=== PATIENT | female | born 1955 | race Caucasian/White ===

== ENCOUNTER 2021-07-17 10:28 | Day surgery (SDC) | payer OTHER ==
[2021-07-14 12:24] VITALS: BMI 24.0
[2021-07-17] MEDS ORDERED: PHENYLEPHRINE 2.5% OPHTH SOLN 15 ML BOTTLE ONE (10:39)
[2021-07-17] MEDS ORDERED: CYCLOPENTOLATE HCL 1% OPHTH SOLN 2 ML BOTTLE ONE (10:39)
[2021-07-17] MEDS ORDERED: TROPICAMIDE 1% OPHTH SOLN 15 ML BOTTLE ONE (10:39)
[2021-07-17] MEDS ORDERED: OFLOXACIN 0.3% OPHTHALMIC SOLUTION 5 ML BOTTLE ONE (10:39)
[2021-07-17] MEDS ORDERED: KETOROLAC TROMETHAMINE 0.5% EYE DROP 1 DROP DROPS ONE (10:39)
[2021-07-17] MEDS: KETOROLAC TROMETHAMINE 0.5% EYE DROP 1 DROP DROPS OD SCH ×3 (11:05→11:15)
[2021-07-17] MEDS: OFLOXACIN 0.3% OPHTHALMIC SOLUTION 5 ML BOTTLE OD SCH ×3 (11:05→11:15)
[2021-07-17] MEDS: PHENYLEPHRINE 2.5% OPHTH SOLN 15 ML BOTTLE OD SCH ×3 (11:05→11:15)
[2021-07-17] MEDS: CYCLOPENTOLATE HCL 1% OPHTH SOLN 2 ML BOTTLE OD SCH ×3 (11:05→11:15)
[2021-07-17] MEDS: TROPICAMIDE 1% OPHTH SOLN 15 ML BOTTLE OD SCH ×3 (11:05→11:15)
[2021-07-17] MEDS ORDERED: EPI-SHUGARCAINE (EPINEPHRINE 0.025% & LIDOCAINE-PF 0.75%) 4ML ONE (11:54)
[2021-07-17] MEDS ORDERED: TETRACAINE 0.5% OPHTH SOLN 2 ML BOTTLE ONE (11:54)
[2021-07-17] MEDS ORDERED: NEO/POLYMYX B SULF/DEXAMETH OPHTHALMIC 5ML BOTTLE ONE (11:54)
[2021-07-17] MEDS ORDERED: POVIDONE-IODINE 5% OPHTHALMIC PREP 30 ML SOLUTION ONE (11:54)
[2021-07-17] MEDS ORDERED: BETAXOLOL HCL 0.25% OPHTHALMIC 10 ML DROPSBTL ONE (11:54)
[2021-07-17] MEDS ORDERED: BACITRACIN/POLYMYXIN OPH OINT 3.5 GM TUBE ONE (11:54)
[2021-07-17] MEDS ORDERED: MIDAZOLAM HCL 2 MG/2 ML SINGLE DOSE VIAL ONE (12:07)
[2021-07-17] MEDS ORDERED: ACETAMINOPHEN 325 MG TABLET (FP) PO PRN (12:35)
[2021-07-17] MEDS ORDERED: ACETAMINOPHEN 325 MG TABLET (FP) PO ONE (12:50)
[2021-07-17] MEDS ORDERED: ACETAMINOPHEN 325 MG TABLET (FP) ONE (12:52)
[2021-07-17 13:08] VITALS: TEMP 97.6
[2021-07-17 13:27] VITALS: BP 116/54; PULSE 78
== END 2021-07-17 13:45 | disposition home or self-care (01) ==
LOC: FASU 10:28
PROVIDERS: ATTEND Ophthalmology
PROC: 08RJ3JZ Replacement of Right Lens with Synthetic Substitute, Percutaneous Approach (ICD-10-PCS; principal; 2021-07-17 12:18)
DX: H25.11 Age-related nuclear cataract, right eye (principal)

== ENCOUNTER → 2021-07-31 | Day surgery (SDC) | payer OTHER ==
[2021-07-28 16:07] VITALS: BMI 24.0
[~2021-07-31] MED LIST: ACETAMINOPHEN 325 MG TABLET (FP) ONE; ACETAMINOPHEN 325 MG TABLET (FP) PO PRN; ACETYLCHOLINE 1:100 INTRA-OCUL 20 MG/2 ML KIT ONE; BACITRACIN/POLYMYXIN OPH OINT 3.5 GM TUBE ONE; BETAXOLOL HCL 0.25% OPHTHALMIC 10 ML DROPSBTL ONE; BSS (NA/CA/MG/K) BALANCED SALT SOLUTION OPHTH SOLN 15 ML BOTTLE ONE; EPI-SHUGARCAINE (EPINEPHRINE 0.025% & LIDOCAINE-PF 0.75%) 4ML ONE; EPINEPHrine/PF 1 MG/1 ML (1:1,000) AMPULE ONE; MIDAZOLAM HCL 2 MG/2 ML SINGLE DOSE VIAL ONE; NEO/POLYMYX B SULF/DEXAMETH OPHTHALMIC 5ML BOTTLE ONE; POVIDONE-IODINE 5% OPHTHALMIC PREP 30 ML SOLUTION ONE; TETRACAINE 0.5% OPHTH SOLN 2 ML BOTTLE ONE; TROPICAMIDE 1% OPHTH SOLN 15 ML BOTTLE ONE
[2021-07-31] MEDS: OFLOXACIN 0.3% OPHTHALMIC SOLUTION 5 ML BOTTLE OS SCH ×3 (07:05→07:15)
[2021-07-31] MEDS: TROPICAMIDE 1% OPHTH SOLN 15 ML BOTTLE OS SCH ×3 (07:05→07:15)
[2021-07-31] MEDS: PHENYLEPHRINE 2.5% OPHTH SOLN 15 ML BOTTLE OS SCH ×3 (07:05→07:15)
[2021-07-31] MEDS: CYCLOPENTOLATE HCL 1% OPHTH SOLN 2 ML BOTTLE OS SCH ×3 (07:05→07:15)
[2021-07-31] MEDS: KETOROLAC TROMETHAMINE 0.5% EYE DROP 1 DROP DROPS OS SCH ×3 (07:05→07:15)
[2021-07-31 14:28] VITALS: PULSE 82; TEMP 98
[2021-07-31 14:34] VITALS: BP 116/64
== END | disposition home or self-care (01) ==
LOC: FASU 06:29
PROVIDERS: ATTEND Ophthalmology
PROC: 08RK3JZ Replacement of Left Lens with Synthetic Substitute, Percutaneous Approach (ICD-10-PCS; principal; 2021-07-31 08:09)
DX: H25.12 Age-related nuclear cataract, left eye (principal)